=== PATIENT | male | born 1990 | race Caucasian/White ===

== ENCOUNTER 2019-07-22 07:07 | Emergency (ER) | payer SELFPAY ==
[~2019-07-22] VITALS: Ht 180.3 cm; Wt 72.6 kg
[2019-07-22 07:30] VITALS: Ht 180.3 cm; Wt 72.6 kg
[2019-07-22 09:35] VITALS: BP 125/78
== END 2019-07-22 09:35 | disposition home or self-care (01) ==
LOC: ED 07:07
DX: S82.891A Other fracture of right lower leg, initial encounter for closed fracture (principal); F17.210 Nicotine dependence, cigarettes, uncomplicated; W22.8XXA Striking against or struck by other objects, initial encounter; Y93.89 Activity, other specified; Y92.89 Other specified places as the place of occurrence of the external cause; Y99.8 Other external cause status
CPT/HCPCS: Q0092